=== PATIENT | female | born 1980 | race Two or more races ===

== ENCOUNTER 2021-06-26 13:11 | Emergency (ER) | payer OTHER ==
[2021-06-26 13:25] VITALS: BP 99/67; PULSE 78; TEMP 99.3; BMI 22.1
[2021-06-26] MEDS ORDERED: SODIUM CHLORIDE 1,000 ML IV STA (14:19)
[2021-06-26] MEDS ORDERED: FAMOTIDINE 20 MG/50 ML IVPB 20 MG/50 ML MG IVPB ONE ×2 (14:19→14:45)
[2021-06-26] MEDS ORDERED: ONDANSETRON 4 MG/2 ML VIAL IVPUSH ONE (14:19)
[2021-06-26] MEDS ORDERED: ACETAMINOPHEN 1000 MG/100 ML BAG IVPB ONE (14:20)
[2021-06-26] MEDS ORDERED: ACETAMINOPHEN INJECTION 100 ML IVPB ONE (14:45)
[2021-06-26] MEDS ORDERED: ONDANSETRON 4 MG/2 ML VIAL ONE (14:45)
[2021-06-26 15:08] LABS: BASO % 0.5 % (0-2.0); EOS % 0.2 % (0-4.5); HEMATOCRIT 39.9 % (32.4-45.2); HEMOGLOBIN 13.2 GM/dL (10.7-15.3); LYMPH % 7.8 % (8-40); MCH 30.8 pg (25.7-33.7); MCHC 33.1 g/dl (32.0-36.0); MEAN CELL VOLUME 92.9 fl (80-96); MEAN PLT VOLUME 7.9 fl (7.5-11.1); MONO % 8.5 % (3.8-10.2); PLATELET COUNT 331 10^3/uL (134-434); RBC 4.29 M/mm3 (3.60-5.2); RDW 13.5 % (11.6-15.6)
[2021-06-26 15:18] LABS: INR 1.11 (0.83-1.09); PROTHROMBIN TIME (PATIENT) 12.8 SEC (9.7-13.0)
[2021-06-26 15:31] LABS: ALBUMIN 4.1 g/dl (3.4-5.0); CALCIUM 9.4 mg/dL (8.5-10.1)
[2021-06-26 15:32] LABS: BLOOD UREA NITROGEN 13.6 mg/dL (7-18)
[2021-06-26 15:35] LABS: CREATININE 0.8 mg/dL (0.55-1.3)
[2021-06-26 15:36] LABS: BILIRUBIN,TOTAL 0.6 mg/dL (0.2-1); TOT PROT 8.1 g/dl (6.4-8.2)
[2021-06-26 15:52] LABS: PH,URINE 5.5 (5.0-8.0); URINE APPEARANCE CLEAR; URINE BILIRUBIN NEGATIVE (NEGATIVE); URINE COLOR YELLOW; URINE GLUCOSE (UA) NEGATIVE (NEGATIVE); URINE KETONE TRACE (NEGATIVE); URINE LEUK ESTERASE NEGATIVE (NEGATIVE); URINE NITRITE NEGATIVE (NEGATIVE); URINE PROTEIN TRACE (NEGATIVE); URINE UROBILINOGEN 0.2 mg/dL (0.2-1.0)
[2021-06-26 16:00] LABS: HCG,QUALITATIVE URINE Negative
== END 2021-06-26 19:30 | disposition home or self-care (01) ==
LOC: JER 13:11
PROC: 3E0333Z Introduction of Anti-inflammatory into Peripheral Vein, Percutaneous Approach (ICD-10-PCS; principal; 2021-06-26)
PROC: 3E033GC Introduction of Other Therapeutic Substance into Peripheral Vein, Percutaneous Approach (ICD-10-PCS; 2021-06-26)
PROC: 3E033GC Introduction of Other Therapeutic Substance into Peripheral Vein, Percutaneous Approach (ICD-10-PCS; 2021-06-26)
PROC: 3E0337Z Introduction of Electrolytic and Water Balance Substance into Peripheral Vein, Percutaneous Approach (ICD-10-PCS; 2021-06-26)
DX: R10.9 Unspecified abdominal pain (principal); R11.2 Nausea with vomiting, unspecified; R19.7 Diarrhea, unspecified
CPT/HCPCS: 36415; 74177-TC; 80053; 81003; 83690; 84703; 85025; 85610; 87086; 99285-25; J0131

== ENCOUNTER 2021-09-01 16:17 | Emergency (ER) | payer OTHER ==
[2021-09-01 16:33] VITALS: BP 103/69; PULSE 78; TEMP 97.8; BMI 22.1
[2021-09-01] MEDS ORDERED: IBUPROFEN 600 MG TABLET (FP) PO ONE ×2 (17:07→17:41)
== END 2021-09-01 18:41 | disposition home or self-care (01) ==
LOC: JER 16:17 → JERFT 16:17
PROC: 2W3RX1Z Immobilization of Left Lower Leg using Splint (ICD-10-PCS; principal; 2021-09-01)
DX: M79.605 Pain in left leg (principal); X50.0XXA Overexertion from strenuous movement or load, initial encounter
CPT/HCPCS: 93971-TC; 99284-25